=== PATIENT | male | born 1945 | race Hispanic/Latino ===

== ENCOUNTER 2018-09-12 06:26 | Day surgery (SDC) | payer MEDICARE ==
[2018-09-12] MEDS ORDERED: NACL 0.9% 500 ML 500 ML ONE (07:48)
[2018-09-12] MEDS ORDERED: DIPRIVAN 10 MG/ML IV ONE ×2 (07:58)
--- NOTE | 2018-09-12 08:44 | Anesthesia Day of Surgery ---
Anesthesia Day of Surgery - Day of Surgery Patient Examined: Yes Patient H&P Reviewed: Yes Patient is NPO: Yes
--- NOTE | 2018-09-12 08:44 | Anesthesia Consultation ---
Anesthesia Consult and Med Hx Date of service: 09/12/18 - Airway Anesthetic Teeth Evaluation: Good ROM Head & Neck: Adequate Mental/Hyoid Distance: Adequate Mallampati Class: Class II Intubation Access Assessment: Good - Pulmonary Exam CTA: Yes - Cardiac Exam Cardiac Exam: RRR - Pre-Operative Health Status ASA Pre-Surgery Classification: ASA3 Proposed Anesthetic Plan: MAC - Cardiovascular System Hx Hypertension: Yes (2008) Hx Peripheral Vascular Disease: No - Central Nervous System Hx Psychiatric Problems: No - Other Systems Hx Cancer: Yes
[2018-09-12] MEDS ORDERED: NACL 0.9% 500 ML 500 ML IV SCH (09:00)
--- NOTE | 2018-09-12 09:16 | Electrophysiological Studies ---
ELECTIVE ELECTRICAL CARDIOVERSION REFERRING PHYSICIAN: Aristides Hidalgo MD INDICATIONS FOR PROCEDURE: The patient is a pleasant 73-year-old gentleman with paroxysmal atrial fibrillation, has been on Eliquis, appropriately dosed, uninterrupted for over 2 months. This is confirmed today. He maintains atrial fibrillation today, referred for cardioversion. DESCRIPTION OF PROCEDURE: The patient was brought to the cardioversion suite in a postabsorptive state. Anesthesia is present at bedside. Nurse is present at bedside. Once adequate sedation is achieved, the patient is cardioverted with one synced cardioversion of 200 joules. Successful reversion to sinus rhythm. No complications. The patient tolerated the procedure well. Anesthesia to recover the patient. CONCLUSION: Successful elective cardioversion of atrial fibrillation with resumption of sinus rhythm. The patient will be discharged in the next 2 hours or so. Follow up with Dr. Ezio Hidalgo in the office. No complications. JOB# [id number] [facility]
[2018-09-12] MEDS ORDERED: XYLOCAINE MPF 2% ONE (10:00)
[2018-09-12 11:15] VITALS: BP 100/50
== END 2018-09-12 09:55 | disposition home or self-care (01) ==
LOC: CATHLABREC 06:26
DX: I48.2 Chronic atrial fibrillation (principal); E11.9 Type 2 diabetes mellitus without complications; E78.2 Mixed hyperlipidemia; I10 Essential (primary) hypertension; Z98.61 Coronary angioplasty status; Z79.899 Other long term (current) drug therapy; Z79.82 Long term (current) use of aspirin; Z87.891 Personal history of nicotine dependence; Z85.46 Personal history of malignant neoplasm of prostate; Z98.890 Other specified postprocedural states; Z83.3 Family history of diabetes mellitus; Z82.49 Family history of ischemic heart disease and other diseases of the circulatory system
CPT/HCPCS: 92960; 93005; 93010; J2704; J7040